=== PATIENT | female | born 1960 | race Caucasian/White ===

== ENCOUNTER 2019-07-29 16:45 | Emergency (ER) | payer OTHER ==
[~2019-07-29] VITALS: Ht 167.6 cm; Wt 72.6 kg
--- OUTSIDE RECORDS SUMMARY | 2019-07-29 16:48 | XMS ---
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 currently on file CRITERIA MET - 6 ED Visits in 6 Months - [facility] - Has Care Guidelines - PDMP - [facility] - 2 Visits in 30 Days CARE PROVIDERS Iraj Hernandez Community Health Worker 07/23/2019-[facility] - PHONE: [phone] STEPHANIE BENTON Primary Care Current PHONE: Unknown KAITY PAGAN Primary Care [facility] PHONE: Unknown Guidelines Source: Kali Jones Guidelines Date: 07/22/2019 Care Coordination: Currently enrolled in mental health services, individual therapy and supported employment, with [email or web address].\T\nbsp; Please contact [email or web address] for mental health concerns.\T\nbsp; [facility]: [phone].\T\nbsp;\T\nbsp;[facility]: [phone]. E.D. VISIT COUNT (12 MO.) 6 [facility] 1 MICHAEL Salcedo TOTAL 7 NOTE: Visits indicate total known visits. ED/UCC VISIT TRACKING (12 MO.) 07/29/2019 16:46 [facility] [place] TYPE: Emergency COMPLAINT: - LEFT FOOT PAIN/NON INJURY 07/29/2019 07:44 [facility] [place] TYPE: Emergency DIAGNOSES: - LEFT FT PAIN - Cutaneous abscess of left foot 07/23/2019 06:38 [facility] [place] TYPE: Emergency DIAGNOSES: - Post-traumatic stress disorder, unspecified - Restlessness and agitation - MENTAL HEALTH PROBLEM 07/20/2019 14:22 [facility] [place] TYPE: Emergency DIAGNOSES: - Transient alteration of awareness - COMBATIVE - Laceration without foreign body, right foot, init encntr 06/05/2019 08:44 [facility] [place] TYPE: Emergency DIAGNOSES: - VOMITING - Vomiting, unspecified 06/01/2019 16:48 [facility] [place] [facility] [place] TYPE: Emergency DIAGNOSES: - Acute kidney failure, unspecified - AMS - Elevated white blood cell count, unspecified - Transient alteration of awareness 10/25/2018 07:58 [facility] DIAGNOSES: - MENTAL HEALTH - Disorientation, unspecified - Restlessness and agitation - 1 Type 1 diabetes mellitus with ketoacidosis without coma INPATIENT VISIT TRACKING (12 MO.) 06/01/2019 16:48 [facility] [place] TYPE: Inpatient DIAGNOSES: - Elevated white blood cell count, unspecified - 1 Type 2 diabetes mellitus w diabetic chronic kidney disease - FDC (current) use of insulin - Acute kidney failure, unspecified - 1 Chronic kidney disease, stage 2 (mild) - Transient alteration of awareness [email or web address]
== END 2019-07-29 18:29 | disposition left against medical advice (07) ==
LOC: ED 16:45
DX: M79.89 Other specified soft tissue disorders (principal)

== ENCOUNTER 2020-04-09 22:35 | Emergency (ER) | payer MEDICARE, OTHER ==
[~2020-04-09] VITALS: Ht 167.6 cm; Wt 72.6 kg
--- OUTSIDE RECORDS SUMMARY | 2020-04-09 22:38 | XMS ---
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 Was admitted from ER @ 2321hrs. Refused all treatment: surgery, IV antibiotics, etc. throughout the night. Elopement at [facility] 07/29/2019 16:46 - Other Details: PATIENT LEFT AMA. Elopement at [facility] 07/29/2019 16:46 - Other Details: PATIENT LEFT AMA CRITERIA MET - [facility] - [facility] There are no care providers on record at this time. Guidelines Source: [facility] [place] Guidelines Date: 07/22/2019 Care Coordination: Currently enrolled in mental health services, individual therapy and supported employment, with [facility].\T\nbsp; Please contact [facility] for mental health concerns.\T\nbsp; [place]: [phone].\T\nbsp;\T\nbsp;[facility]: [phone]. E.D. VISIT COUNT (12 MO.) 9 [facility] 2 [facility]. TOTAL 11 NOTE: Visits indicate total known visits. ED/UCC VISIT TRACKING (12 MO.) 04/09/2020 22:36 [facility] [place] TYPE: Emergency COMPLAINT: - WOUND PROBLEM 02/04/2020 13:32 [facility] DIAGNOSES: - NAUSEOUS - Meniere's disease, unspecified ear 08/02/2019 09:15 [facility] [place] TYPE: Emergency DIAGNOSES: - foot infection - Cellulitis of unspecified part of limb 07/30/2019 18:37 [facility] [place] TYPE: Emergency DIAGNOSES: - FOOT WOUND - Cellulitis of left lower limb 07/29/2019 20:23 [facility] [place] TYPE: Emergency DIAGNOSES: - DEHYDRATION 07/29/2019 16:46 [facility] TYPE: Emergency COMPLAINT: - LEFT FOOT PAIN/NON INJURY, LEFT AMA DIAGNOSES: - Other specified soft tissue disorders 07/29/2019 07:44 [facility] [place] TYPE: Emergency DIAGNOSES: - LEFT FT PAIN - Cutaneous abscess of left foot 07/23/2019 06:38 [facility] [place] TYPE: Emergency DIAGNOSES: - Post-traumatic stress disorder, unspecified - Restlessness and agitation - MENTAL HEALTH PROBLEM 07/20/2019 14:22 [facility] [place] TYPE: Emergency DIAGNOSES: - Transient alteration of awareness - COMBATIVE - Laceration without foreign body, right foot, initial encounter 06/05/2019 08:44 [facility] [place] TYPE: Emergency DIAGNOSES: - VOMITING - Vomiting, unspecified 06/01/2019 16:48 [facility] [place] TYPE: Emergency DIAGNOSES: - Acute kidney failure, unspecified - AMS - Elevated white blood cell count, unspecified - Transient alteration of awareness INPATIENT VISIT TRACKING (12 MO.) 06/01/2019 16:48 [facility] [place] TYPE: Inpatient DIAGNOSES: - Elevated white blood cell count, unspecified - Type 2 diabetes mellitus with diabetic chronic kidney disease - 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
[2020-04-09] MEDS ORDERED: METFORMIN HCL1000 MG PO (22:53)
[2020-04-09] MEDS ORDERED: LEVOTHYROXINE112 MCG PO (22:53)
[2020-04-09] MEDS ORDERED: ATENOLOL25 MG PO (22:53)
[2020-04-09] MEDS ORDERED: LISINOPRIL40 MG PO (22:53)
[2020-04-09] MEDS ORDERED: ATORVASTATIN CA40 MG PO (22:53)
[2020-04-09] MEDS ORDERED: LANTUS SOL100 UNIT/1 SUB-Q (22:54)
[2020-04-09] MEDS ORDERED: MUPIROCIN22 GM TOP (22:54)
[2020-04-09] MEDS ORDERED: ALPRAZOLAM0.5 MG PO (22:54)
[2020-04-09] MEDS ORDERED: SYMBICORT 16010.2 GM INH (22:54)
[2020-04-09] MEDS ORDERED: OMEPRAZOLE20 MG PO (22:54)
[2020-04-09] MEDS ORDERED: MECLIZINE HCL25 MG PO (22:55)
== END 2020-04-10 11:30 | disposition home or self-care (01) ==
LOC: ED 22:35
DX: R41.82 Altered mental status, unspecified (principal); E11.65 Type 2 diabetes mellitus with hyperglycemia; Z91.14 Patient's other noncompliance with medication regimen; F43.10 Post-traumatic stress disorder, unspecified; I10 Essential (primary) hypertension; F41.9 Anxiety disorder, unspecified; Z87.891 Personal history of nicotine dependence; Z91.030 Bee allergy status; Z88.0 Allergy status to penicillin; Z79.899 Other long term (current) drug therapy; Z79.4 Long term (current) use of insulin
CPT/HCPCS: 80048; 80053; 80176; 81001; 82010; 82800; 84443; 85025; 87088; 96374; 96375; 99284-25; G0480; J1815; J2060; J7030